=== PATIENT | male | born 1945 | race Caucasian/White ===

== ENCOUNTER 2021-05-20 13:04 | Day surgery (SDC) | payer OTHER ==
[~2021-05-20] VITALS: Ht 154.9 cm; Wt 93.6 kg
[~2021-05-20 13:04] MED LIST: DIAZ5; FISH1000 PO; MULVITMIND PO; OXYC1TAB11 PO; SIMV40 PO; VITAMIN C PO
--- NOTE | 2021-05-20 15:00 | NUR ---
05/20/21 FARHAN RESENDIZ PT ADMITS THAT HE WAS PLANNING ON DRIVING HIMSELF HOME. HE HAD NOT PLANNED A RIDE. HE CALLED HIS DTR DAAN TO PICK HIM UP AFTER WE WENT OUT TO HIS VAN TO MOLDED CANDLES WICKER HIS CELL PHONE TO CALL HER.
== END 2021-05-20 14:50 | disposition home or self-care (01) ==
LOC: ORSCSDS 13:04
PROVIDERS: Ophthalmology
PROC: 08BP0ZZ Excision of Left Upper Eyelid, Open Approach (ICD-10-PCS; principal; 2021-05-20 14:30)
DX: H02.422 Myogenic ptosis of left eyelid (principal)
CPT/HCPCS: A9270; J2250; J2704; J3010

== ENCOUNTER 2022-01-17 09:07 | Emergency (ER) | payer OTHER ==
[~2022-01-17] VITALS: Ht 185.4 cm; Wt 97.5 kg
[2022-01-17] MEDS ORDERED: NAPR500 PO (10:53)
[2022-01-17] MEDS ORDERED: HYDR1TAB94 PO (10:53)
[2022-01-17] MEDS ORDERED: PRED20 PO (10:53)
== END 2022-01-17 11:28 | disposition home or self-care (01) ==
LOC: ER 09:07
DX: M25.552 Pain in left hip (principal); M25.562 Pain in left knee; Z96.642 Presence of left artificial hip joint; Z96.652 Presence of left artificial knee joint
CPT/HCPCS: 73502; J1885

== ENCOUNTER → 2022-08-12 | Outpatient (CLI) | payer OTHER ==
[~2022-08-12] MED LIST changes: +HYDR1TAB94 PO; +NAPR500 PO; +PRED20 PO
[2022-08-24 11:12] LABS: BRUSHITE 0.16 ratio (0.00-3.00); CALCIUM OXALATE 1.76 ratio (0.00-6.00); CALCIUM, URINE 2.9 mg/dL (Not Estab.); CHLORIDE URINE 56 (52-264); CITRIC ACID (CITRATE) 176 mg/L (Not Estab.); CITRIC ACID(CITRATE) 176 mg/24 hr (320-1240); CREATININE, URINE 80.8 mg/dL (Not Estab.); MAGNESIUM, URINE 2.4 mg/dL (Not Estab.); MONOSODIUM URATE 0.83 ratio (0.00-4.00); OSMOLALITY, URINE 429 (300-900); SODIUM, URINE 73 (58-337); SODIUM, URINE 73 mmol/L (Not Estab.); STRUVITE 0.01 ratio (0.00-1.00); URIC ACID 1.79 ratio (0.00-1.20); URINE VOLUME 1000 mL/24 hr (800-1800); URINE VOLUME (PRESERVATIVE) 1000 mL/24 hr (800-1800)
== END | disposition home or self-care (01) ==
LOC: LAB 03:30 → LAB SHORT 03:30
PROVIDERS: Urology
DX: N20.1 Calculus of ureter (principal)
CPT/HCPCS: 81003; 82131; 82140; 82340; 82436; 82507; 82570; 83735; 83935; 83945; 84105; 84133; 84300; 84392; 84560

== ENCOUNTER 2024-12-01 15:34 | Emergency (ER) | payer OTHER ==
[~2024-12-01] VITALS: Ht 185.4 cm; Wt 99.8 kg
[2024-12-01 15:44] VITALS: BP 154/77
[2024-12-01 17:07] LABS: Influenza A, PCR NEGATIVE (NEGATIVE); Influenza B, PCR NEGATIVE (NEGATIVE); Resp Syncytial Virus, PCR NEGATIVE (NEGATIVE); SARS-Cov-2 (COVID-19) PCR, MMC NEGATIVE (NEGATIVE)
== END 2024-12-01 18:14 | disposition home or self-care (01) ==
LOC: ER 15:34
PROVIDERS: Student in an Organized Health Care Education/Training Program
DX: J06.9 Acute upper respiratory infection, unspecified (principal); Z79.899 Other long term (current) drug therapy; Z59.89 Other problems related to housing and economic circumstances
CPT/HCPCS: 71046; 87637; 99283-25